=== PATIENT | female | born 1955 | race Caucasian/White ===

== ENCOUNTER → 2016-11-25 | Outpatient (CLI) | payer OTHER ==
[~2016-11-25] MED LIST: ATENOLOL; LIPITOR; METFORMIN; PRILOSEC
--- NOTE | ~2016-11-25 | CT2 ---
[facility] A Service of [facility] / [facility] RADIOLOGY TEXT RESULTS PATIENT: PAL[facility]CH [facility] #: [id number] AGE: [address]: Cachorro Dotson MD SEX: F ORDER DR: [id number] [facility] [address] [place], [place] [address] [id number] O MR#: [id number] Acc #: [id number] NAME: PALMIRA BUNCH : 1955 SEX: F STUDY DATE/TIME: 11/25/2016 10:50 UNIT: [facility] ROOM: STUDY DESCRIPTION: CT Abd and Pelv W Cont Attending Physician: Cachorro Dotson M.D. Referring Physician: Cachorro Dotson M.D. Ordering Physician: Cachorro Dotson M.D. Primary Care Physician: Natalie Figueroa M.D. MEDICAL IMAGING REPORT This report is preliminary unless electronic signature is present EXAM CT abdomen and pelvis, 11/25/2016 INDICATIONS Anterior abdominal wall mass. Generalized abdominal pain. TECHNIQUE CT of the abdomen and pelvis with p.o. and IV contrast (100 mL Isovue-370 IV contrast). Coronal and sagittal reconstructions were obtained. This CT exam was performed with one or more of the following radiation dose reduction techniques: Automatic exposure control, adjustment of mA and/or kV according to patient size, and iterative reconstruction. COMPARISON CT abdomen and pelvis dated 09/26/2009. FINDINGS There is a well-encapsulated fatty mass in the superficial soft tissues of the anterior abdomen. This fatty mass measures 6.2 x 3.0 x 5.4 cm. This is located just left of midline, approximately 13 cm above the umbilicus (8 cm below the xiphoid process). This is consistent with a simple lipoma. There is no anterior abdominal wall defect to suggest a anterior abdominal wall hernia. The solid abdominal organs enhance normally. Gallbladder is surgically absent. No intrahepatic or extrahepatic biliary dilatation. The pancreas, liver, spleen, and adrenal glands are within normal limits. The bowel is not dilated. No enlarged retroperitoneal or mesenteric lymph nodes. The appendix is normal. There are a few left-sided colonic diverticula. PELVIS: No pelvic mass or free pelvic fluid. The uterus and ovaries are STS. [facility] A Service of [facility] / [facility] RADIOLOGY TEXT RESULTS PATIENT: PALMIRA BUNCH LOCATION: [facility] : 51 UNIT #: [id number] AGE: [address]: Cachorro Dotson MD SEX: F ORDER DR: presumed surgically absent. No enlarged pelvic or inguinal lymph nodes. Bladder is unremarkable. No acute osseous abnormalities. IMPRESSION 1. 6.2 cm simple lipoma within the superficial soft tissues of the anterior abdomen. 2. Colonic diverticulosis. Dictated by... Malvin Wood M.D. THIS IS AN ELECTRONICALLY VERIFIED REPORT Malvin Wood M.D. at 11/26/2016 8:19 AM FRANCIS/deysi TD: 11/25/2016 21:47 JOB #: [id number] MEDICAL IMAGING REPORT COPY
[2016-11-25 09:55] LABS: POC - CREATININE 0.64 mg/dL (0.44-1.03); POC - GFR >60.0 mL/min (>60)
== END | disposition home or self-care (01) ==
LOC: CCAT 08:50
PROVIDERS: Surgery
DX: R19.00 Intra-abdominal and pelvic swelling, mass and lump, unspecified site (principal); R10.9 Unspecified abdominal pain; D17.79 Benign lipomatous neoplasm of other sites; K57.90 Diverticulosis of intestine, part unspecified, without perforation or abscess without bleeding
CPT/HCPCS: 74177; 82565; Q9967